=== PATIENT | female | born 1950 | race Two or more races ===

== ENCOUNTER 2022-10-01 14:58 | Emergency (ER) | payer MEDICAID ==
[~2022-10-01] VITALS: Ht 162.6 cm; Wt 90.7 kg
--- NOTE | 2022-10-01 15:25 | NUR ---
NAI RA 89 FROM HOME,C/O RUQ PAIN
[2022-10-01] MEDS ORDERED: KETOROLAC TROMETHAMINE 15 MG/ML VIAL ONE (15:44)
--- NOTE | 2022-10-01 15:50 | NUR ---
iv inserted L wrist 20G BLD DRAWN , URINE COLLECTED SENT TO LAB
--- NOTE | 2022-10-01 15:55 | NUR ---
IVPB AND IVP DONE SLOWLY WELL TOLERATED
[2022-10-01 15:57] LABS: BASOPHILS # (AUTO) 0.1 K/uL (0.0-0.2); BASOPHILS % (AUTO) 0.9 % (0.0-2.0); EOSINOPHILS % (AUTO) 1.3 % (0.0-6.0); HEMATOCRIT 43 % (33-45); HEMOGLOBIN 13.7 g/dL (11.5-14.8); LYMPHOCYTES # (AUTO) 2.2 K/uL (0.8-4.8); LYMPHOCYTES % (AUTO) 25.7 % (20.0-44.0); MEAN CORPUSCULAR HGB CONC 32 g/dl (31.0-36.0); MEAN CORPUSCULAR VOLUME 79 fL (82-100); MONOCYTES # (AUTO) 0.6 K/uL (0.1-1.30); MONOCYTES % (AUTO) 7.3 % (2.0-12.0); NEUTROPHILS # (AUTO) 5.6 K/uL (1.8-8.9); NEUTROPHILS % (AUTO) 64.8 % (43.0-81.0); PLATELET COUNT (AUTO) 286 K/uL (150-450); RED BLOOD CELL COUNT(AUTO) 5.37 MIL/uL (4.0-5.2); WHITE BLOOD COUNT (AUTO) 8.7 K/uL (4.3-11.0)
[2022-10-01] MEDS ORDERED: KETOROLAC TROMETHAMINE INJ 30 MG/ML VIAL IV ONE (16:00)
[2022-10-01] MEDS ORDERED: IV NS 0.9% 1,000 ML BAG IV ONE (16:00)
--- NOTE | 2022-10-01 16:10 | NUR ---
TO CT SCAN OF HEAD
[2022-10-01 16:19] LABS: CALCIUM, SERUM 9.2 mg/dL (8.5-10.1); CARBON DIOXIDE 25 mmol/L (21-32); CHLORIDE 106 mmol/L (98-107); CREATININE 0.8 mg/dL (0.6-1.3); GLUCOSE 99 mg/dL (74-106); POTASSIUM 3.7 mmol/L (3.5-5.1); SODIUM SERUM 137 mmol/L (136-145); UREA NITROGEN, BLOOD 16 mg/dL (7-18)
[2022-10-01 16:32] LABS: ALANINE AMINOTRANSFERASE 23 U/L (12-78); ALBUMIN 3.7 g/dL (3.4-5.0); ALKALINE PHOSPHATASE 77 U/L (46-116); ASPARTATE AMINOTRANSFERASE 18 U/L (15-37); BILIRUBIN,TOTAL 0.3 mg/dL (0.2-1.0); LIPASE 101 U/L (73-393); TOTAL PROTEIN, SERUM 7.7 g/dL (6.4-8.2)
--- NOTE | 2022-10-01 16:52 | NUR ---
EMD AT BEDSIDE FOR RE EVAL
[2022-10-01] MEDS ORDERED: NAPR-1164 PO (17:01)
--- NOTE | 2022-10-01 17:05 | NUR ---
IV removed. Catheter intact and site benign. Pressure and 4x4 applied to site. No bleeding noted.
--- NOTE | 2022-10-01 17:05 | NUR ---
Lauren beckham in ED - 10/01/22 at 1714 by LALA Patient discharged to home in stable condition. Written and verbal after care instructions given. Patient verbalizes understanding of instruction.
--- NOTE | 2022-10-01 17:07 | NUR ---
Patient discharged to home in stable condition. Written and verbal after care instructions given. Patient verbalizes understanding of instruction.
[2022-10-01 17:13] VITALS: BP 130/77
== END 2022-10-01 17:15 | disposition home or self-care (01) ==
LOC: ER 15:13
DX: R10.84 Generalized abdominal pain (principal); I10 Essential (primary) hypertension
CPT/HCPCS: 99285; 74176; 96374; 71045; 96361; 93005; 85025; 80048; 83690; 80076; 36415; 84484; J7030; A4223; J1885